=== PATIENT | male | born 1950 | race Caucasian/White ===

== ENCOUNTER 2019-05-04 05:40 | Day surgery (SDC) | payer OTHER ==
[2019-05-04] VITALS (7 sets, daily range): BP systolic 101–124; BP diastolic 66–84
[~2019-05-04] VITALS: Ht 177.8 cm; Wt 87.1 kg
[~2019-05-04 05:40] MED LIST: AMLO5TAB9 PO; ASPI-555 PO; CARV6.25 PO; CHOL50004 PO; ESOM40CA54 PO; FINA5TAB41 PO; INSLAN SQ; IRBE1TAB43 PO; IRON PO; MONT10TA24 PO; OMEG100014 PO; PHEN100C9 PO; PREG75 PO; RANI150C4 PO; ROSU40TA20 PO; SODIUM CHLORIDE 0.9% 1000ML 1,000 ML IV ONE; SYMBICORT; TAMS-1 PO
[2019-05-04] MEDS ORDERED: PROPOFOL 1000 MG/100 ML 100 ML IV ONE (07:22)
[2019-05-04] MEDS ORDERED: EPHEDRINE SULFATE 50 MG/ML AMPULE ONE (07:34)
[2019-05-04] MEDS ORDERED: SODIUM CHLORIDE 0.9% 10 ML VIAL ONE (07:49)
[2019-05-04] MEDS ORDERED: PHENYLEPHRINE HCL 10 MG/ML 1ML VIAL IV ONE (07:49)
== END 2019-05-04 08:25 | disposition home or self-care (01) ==
LOC: DAH 05:40 → ENDO 05:40
PROVIDERS: ATTEND Internal Medicine Gastroenterology
DX: D12.3 Benign neoplasm of transverse colon (principal); D12.4 Benign neoplasm of descending colon; K29.50 Unspecified chronic gastritis without bleeding; K63.5 Polyp of colon; Z86.010 Personal history of colon polyps; I10 Essential (primary) hypertension; J45.909 Unspecified asthma, uncomplicated; E11.9 Type 2 diabetes mellitus without complications; I21.3 ST elevation (STEMI) myocardial infarction of unspecified site; G40.909 Epilepsy, unspecified, not intractable, without status epilepticus; Z98.49 Cataract extraction status, unspecified eye; Z98.890 Other specified postprocedural states; Z79.899 Other long term (current) drug therapy; Z79.4 Long term (current) use of insulin; Z79.84 Long term (current) use of oral hypoglycemic drugs; E78.2 Mixed hyperlipidemia; I25.10 Atherosclerotic heart disease of native coronary artery without angina pectoris
CPT/HCPCS: 43239; 45380; 45385; 82948 ×2; 88305; 93005; A4606; J2370; J2704; J3490; J7030

== ENCOUNTER 2019-06-30 12:12 | Emergency (ER) | payer OTHER ==
[~2019-06-30 12:12] MED LIST changes: -ROSU40TA20 PO; +ROSU40TA21 PO; -SODIUM CHLORIDE 0.9% 1000ML 1,000 ML IV ONE
[2019-06-30] MEDS ORDERED: METHYLPREDNISOLONE SOD SUCC 125MG/2ML VIAL ONE (12:44)
[2019-06-30] MEDS ORDERED: IPRATROPIUM/ALBUTEROL SULFATE 3 ML SOLUTION IH ONE ×2 (12:56→14:29)
[2019-06-30 13:18] LABS: BASOPHILS % (AUTO) 0.8 % (0.0-5.0); HEMATOCRIT 39.8 % (42-54); LYMPHOCYTES % (AUTO) 20.1 % (21.0-51.0); MEAN CORPUSCULAR HEMOGLOBIN 31.7 pg (27.0-33.0); MEAN CORPUSCULAR HGB CONC 34.6 g/dL (32.0-36.0); MEAN CORPUSCULAR VOLUME 91.6 fL (79-99); MONOCYTES % (AUTO) 7.5 % (3.0-13.0); NEUTROPHILS % (AUTO) 69.6 % (40.0-77.0); PLATELET COUNT (AUTO) 173 K/uL (130-400); RED BLOOD CELL COUNT(AUTO) 4.35 MIL/uL (4.50-6.20); RED CELL DISTRIBUTION WIDTH 13.6 % (11.0-15.5); WHITE BLOOD COUNT (AUTO) 5.9 K/uL (4.8-10.8)
[2019-06-30 13:28] LABS: ALBUMIN 3.5 g/dL (3.5-5.0); BILIRUBIN,TOTAL 0.3 mg/dL (0.2-1.0); POTASSIUM 4.1 mmol/L (3.5-5.1); TOTAL PROTEIN, SERUM 7.1 g/dL (6.0-8.3)
[2019-06-30 13:42] LABS: B-TYPE NATRIURETIC PEPTIDE 20 pg/mL (0-100)
[2019-06-30] MEDS ORDERED: INSULIN HUMULIN R 100 UNIT/ML 3ML ONE (14:08)
[2019-06-30] MEDS ORDERED: SODIUM CHLORIDE 0.9% 1000ML 1,000 ML IV ONE (14:09)
[2019-06-30] MEDS ORDERED: CEFTRIAXONE SODIUM 1 GM ONE (14:28)
[2019-06-30] MEDS ORDERED: DOXYCYCLINE HYCLATE 100 MG TABLET PO ONE (14:29)
== END 2019-06-30 16:15 | disposition home or self-care (01) ==
LOC: EDH 12:12
DX: J44.1 Chronic obstructive pulmonary disease with (acute) exacerbation (principal); E11.65 Type 2 diabetes mellitus with hyperglycemia; J20.9 Acute bronchitis, unspecified; I10 Essential (primary) hypertension; J45.909 Unspecified asthma, uncomplicated; I25.2 Old myocardial infarction; Z98.890 Other specified postprocedural states
CPT/HCPCS: 36415; 71045; 80053; 82948; 83880; 84484; 85025; 93005; 94640 ×2; 96361; 96374; 96375; 99284; J0696; J1815; J2930; J7030

== ENCOUNTER 2019-08-08 22:57 | Observation (INO) | payer OTHER ==
[~2019-08-08] VITALS: Ht 180.3 cm; Wt 92.4 kg
[2019-08-08 23:29] LABS: APPEARANCE,URINE Clear (CLEAR); BILIRUBIN,URINE Negative (NEGATIVE); COLOR,URINE Yellow (YELLOW); GLUCOSE, URINE (UA) Negative (NEGATIVE); KETONES,URINE Negative (NEGATIVE); LEUKOCYTE ESTERASE ,URINE Negative (NEGATIVE); NITRATE,URINE Negative (NEGATIVE); OCCULT BLOOD,URINE Negative (NEGATIVE); PROTEIN,URINE Negative (NEGATIVE); UROBILINOGEN,URINE 0.2 mg/dL (0.2-1.0)
[2019-08-08 23:32] LABS: BASOPHILS % (AUTO) 0.6 % (0.0-5.0); EOSINOPHILS % (AUTO) 1.5 % (0.0-8.0); HEMATOCRIT 35.2 % (42-54); LYMPHOCYTES % (AUTO) 20.4 % (21.0-51.0); MEAN CORPUSCULAR HGB CONC 35.6 g/dL (32.0-36.0); MEAN CORPUSCULAR VOLUME 89.9 fL (79-99); MONOCYTES % (AUTO) 10.9 % (3.0-13.0); NEUTROPHILS % (AUTO) 66.6 % (40.0-77.0); PLATELET COUNT (AUTO) 177 K/uL (130-400); RED BLOOD CELL COUNT(AUTO) 3.92 MIL/uL (4.50-6.20); RED CELL DISTRIBUTION WIDTH 13.8 % (11.0-15.5); WHITE BLOOD COUNT (AUTO) 6.8 K/uL (4.8-10.8)
[2019-08-08 23:42] LABS: CREATININE 0.9 mg/dL (0.5-1.5); POTASSIUM 3.7 mmol/L (3.5-5.1)
[2019-08-08 23:44] LABS: INR 0.96 (0.85-1.15); PARTIAL THROMBOPLASTIN TIME 25.6 SEC (26.3-35.5); PROTHROMBIN TIME 10.1 SEC (9.6-11.6)
[2019-08-08 23:47] LABS: ALBUMIN 3.4 g/dL (3.5-5.0); BILIRUBIN,TOTAL 0.2 mg/dL (0.2-1.0); TOTAL PROTEIN, SERUM 6.9 g/dL (6.0-8.3)
[2019-08-09] MEDS ORDERED: METRONIDAZOLE 500MG/100ML BAG 100 ML ONE (01:01)
[2019-08-09] MEDS ORDERED: KETOROLAC TROMETHAMINE 15MG/ML ONE (01:01)
[2019-08-09] MEDS ORDERED: LEVETIRACETAM 500 MG/5 ML SD VIAL IV ONE (01:01)
[2019-08-09] MEDS ORDERED: LEVOFLOXACIN 500 MG/D5W 100 ML 100 ML ONE (01:23)
[2019-08-09] MEDS ORDERED: ONDANSETRON HCL 4 MG/2 ML VIAL ONE (01:49)
[2019-08-09] MEDS ORDERED: MORPHINE SULFATE 4 MG/1ML SYG ONE ×2 (01:50→06:06)
[2019-08-09] MEDS ORDERED: ACETAMINOPHEN 325 MG TAB PO PRN ×3 (02:00→09:45)
[2019-08-09] MEDS ORDERED: MORPHINE SULFATE 4 MG/1ML SYG IVP PRN ×2 (02:00→10:00)
[2019-08-09] MEDS ORDERED: ONDANSETRON HCL 4 MG/2 ML VIAL IVP PRN ×2 (02:00→09:45)
[2019-08-09 08:00] VITALS: BP_SYST 123; BP_SYST 153; BP_DIAS 72; BP_DIAS 75
--- NOTE | 2019-08-09 08:55 | NUR ---
PT WANTS TO KNOW HOW TO PREVENT DIVERTICULITIS Addendum: 08/09/19 at 2040 by CLAIR MANZANARES RN RN [facility] CONSULT ENTERED FOR PREVENTIONS OF DIVERTICULITIS.
[2019-08-09] MEDS ORDERED: PANTOPRAZOLE SODIUM 40 MG TABLET.DR PO SCH (09:00)
[2019-08-09] MEDS: METRONIDAZOLE 500MG/100ML BAG 100 ML IVPB SCH ×2 (09:31→18:57)
[2019-08-09] MEDS: SODIUM CHLORIDE 0.9% 1000ML 1,000 ML IV SCH ×3 (09:33→22:00)
[2019-08-09] MEDS ORDERED: SODIUM CHLORIDE 0.9% 1000ML 1,000 ML IV SCH (09:45)
[2019-08-09] MEDS ORDERED: METRONIDAZOLE 500MG/100ML BAG 100 ML IVPB SCH (10:00)
[2019-08-09 11:00] VITALS: BP 145/77
[2019-08-09] MEDS ORDERED: PNEUMOCOCCAL VACCINE POLYVALENT 0.5 ML/VIAL [PPV] IM SCH (12:15)
[2019-08-09 16:00] VITALS: BP 143/75
--- NOTE | 2019-08-09 16:10 | NUR ---
DIET EDUCATION ROBERT provided Diverticulitis Diet Education to Pt. RD reviewed reference materials and handouts with Pt. Pt reports recurrent episodes of diverticulitis, however this current has been the most severe. ROBERT discusses stress levels with Pt related to providing care for . Pt also desires to speak to a [employer] for assistance with care for who is also currently admitted to [facility]. RD answered Pt questions related to diet education provided. Pt verbalized understanding. ROBERT encouraged Pt to notify as nutrition questions or concerns arise. Addendum: 08/09/19 at [address] RD Amended: Links added.
[2019-08-09] MEDS ORDERED: PREGABALIN 75 MG CAPSULE PO PRN (17:15)
[2019-08-09] MEDS ORDERED: DEXTROSE 50%-WATER 50 ML DISP.SYRIN IV PRN (17:45)
[2019-08-09] MEDS ORDERED: GLUCAGON 1MG KIT 1 MG ML IM PRN (17:45)
[2019-08-09] MEDS: PANTOPRAZOLE SODIUM 40 MG TABLET.DR PO SCH (18:56)
[2019-08-09 20:00] VITALS: BP 164/84
[2019-08-09] MEDS ORDERED: PNEUMOCOCCAL VACCINE POLYVALENT 0.5 ML/VIAL [PPV] IM ONE (21:00)
[2019-08-09] MEDS: INSULIN HUMULIN R 100 UNIT/ML 3ML SQ SCH (21:00)
[2019-08-09] MEDS ORDERED: NON-FORMULARY MEDICATION 1 EACH (Esomeprazole Magnesium 40 MG) PO SCH (21:00)
[2019-08-09] MEDS ORDERED: FAMOTIDINE 20MG TAB 20 MG TAB PO SCH (21:00)
[2019-08-09] MEDS: FISH OIL 1000 MG/CAP PO SCH (21:52)
[2019-08-09] MEDS: CARVEDILOL 6.25 MG TABLET PO SCH (21:53)
[2019-08-10] VITALS: BP 160/77
[2019-08-10] MEDS ORDERED: TRAM50TA4 PO (01:25)
[2019-08-10] MEDS ORDERED: METF-446 PO (01:27)
[2019-08-10] MEDS ORDERED: FENO48TA4 PO (01:31)
[2019-08-10] MEDS ORDERED: EMPA25TA PO (01:38)
[2019-08-10] MEDS ORDERED: OZEMPIC SQ (01:46)
[2019-08-10] MEDS: METRONIDAZOLE 500MG/100ML BAG 100 ML IVPB SCH ×3 (02:34→17:00)
[2019-08-10 04:00] VITALS: BP 155/77
[2019-08-10] MEDS: SODIUM CHLORIDE 0.9% 1000ML 1,000 ML IV SCH ×2 (05:59→18:00)
[2019-08-10] MEDS: PANTOPRAZOLE SODIUM 40 MG TABLET.DR PO SCH (06:00)
[2019-08-10] MEDS: INSULIN HUMULIN R 100 UNIT/ML 3ML SQ SCH ×3 (06:04→16:30)
[2019-08-10 08:00] VITALS: BP 181/83
[2019-08-10 08:13] LABS: BASOPHILS % (AUTO) 0.8 % (0.0-5.0); EOSINOPHILS % (AUTO) 1.6 % (0.0-8.0); HEMATOCRIT 35.8 % (42-54); LYMPHOCYTES % (AUTO) 19.4 % (21.0-51.0); MEAN CORPUSCULAR HEMOGLOBIN 31.1 pg (27.0-33.0); MEAN CORPUSCULAR HGB CONC 34.4 g/dL (32.0-36.0); MEAN CORPUSCULAR VOLUME 90.5 fL (79-99); MONOCYTES % (AUTO) 9.1 % (3.0-13.0); NEUTROPHILS % (AUTO) 69.1 % (40.0-77.0); PLATELET COUNT (AUTO) 188 K/uL (130-400); RED BLOOD CELL COUNT(AUTO) 3.95 MIL/uL (4.50-6.20); RED CELL DISTRIBUTION WIDTH 13.6 % (11.0-15.5); WHITE BLOOD COUNT (AUTO) 4.8 K/uL (4.8-10.8)
[2019-08-10 08:38] LABS: CREATININE 0.8 mg/dL (0.5-1.5)
[2019-08-10 08:42] LABS: MAGNESIUM 1.4 mg/dL (1.80-2.40); PHOSPHORUS 2.7 mg/dL (2.5-4.9)
[2019-08-10] MEDS ORDERED: Rosuvastatin Calcium 40 MG PO SCH (09:00)
[2019-08-10] MEDS ORDERED: PHENYTOIN SODIUM 100 MG ERCAP PO SCH (09:00)
[2019-08-10] MEDS ORDERED: MONTELUKAST SODIUM 10 MG TAB PO SCH (09:00)
[2019-08-10] MEDS ORDERED: FINASTERIDE 5 MG TABLET PO SCH (09:00)
[2019-08-10] MEDS ORDERED: TAMSULOSIN HCL 0.4 MG CAP.ER.24H PO SCH (09:00)
[2019-08-10] MEDS ORDERED: Cholecalciferol (Vitamin D3) 5,000 UNIT PO SCH (09:00)
[2019-08-10] MEDS ORDERED: AMLODIPINE BESYLATE 5 MG TAB PO SCH (09:00)
[2019-08-10] MEDS ORDERED: ASPIRIN 81 MG EC TAB PO SCH (09:00)
[2019-08-10] MEDS ORDERED: MAGNESIUM 2GM PREMIX 50ML 50 ML IV SCH (09:45)
[2019-08-10] MEDS ORDERED: PNEUMOCOCCAL VACCINE POLYVALENT 0.5 ML/VIAL [PPV] IM SCH (09:45)
[2019-08-10] MEDS: FISH OIL 1000 MG/CAP PO SCH (10:02)
[2019-08-10] MEDS: CARVEDILOL 6.25 MG TABLET PO SCH (10:03)
[2019-08-10 11:00] VITALS: BP 148/79
--- NOTE | 2019-08-10 11:30 | NUR ---
MET [place] [facility] FOR INITIAL ASESSMENT- INDP, AAOX3, DRIVES, NO DME, LIVES WITH SPOUSE WHO WILL PROVIDE TRANSPORT HOME , NO DC [facility] Addendum: 08/10/19 at 1713 by VIOLETA RAMÍREZ RN CM Amended: Links added.
[2019-08-10] MEDS ORDERED: INSULIN GLARGINE 100 UNITS/ML 10 ML VIAL SQ SCH (17:00)
== END 2019-08-10 17:00 | disposition home or self-care (01) ==
LOC: EDH 22:57 → EDHIP 08-09 01:21 → 4CH 08-09 08:00
PROVIDERS: ADMIT Internal Medicine Critical Care Medicine; ATTEND Internal Medicine Critical Care Medicine
DX: K57.92 Diverticulitis of intestine, part unspecified, without perforation or abscess without bleeding (principal); I10 Essential (primary) hypertension; E11.9 Type 2 diabetes mellitus without complications; E78.5 Hyperlipidemia, unspecified; I25.2 Old myocardial infarction; G40.909 Epilepsy, unspecified, not intractable, without status epilepticus; N40.0 Benign prostatic hyperplasia without lower urinary tract symptoms; J45.909 Unspecified asthma, uncomplicated; Z79.4 Long term (current) use of insulin; Z79.82 Long term (current) use of aspirin; Z95.5 Presence of coronary angioplasty implant and graft; Z79.01 Long term (current) use of anticoagulants; Z23 Encounter for immunization
CPT/HCPCS: 36415 ×2; 71045; 74176; 80048; 80053; 81003; 82150; 82550; 82948 ×3; 83690; 83735; 84100; 84484; 85025 ×2; 85610; 85730; 90732; 93005; 96365; 96366 ×3; 96368; 96372; 99284; G0009; G0378 ×38; J1815; J1885; J1956; J2270 ×2; J2405; J3475; J3490 ×5; J7030; J1953; Q2035

== ENCOUNTER 2019-12-03 10:43 | Emergency (ER) | payer OTHER ==
[~2019-12-03 10:43] MED LIST changes: +EMPA25TA PO; +FENO48TA9 PO; +METF-446 PO; +OZEMPIC SQ; +TRAM50TA4 PO
[2019-12-03 11:35] LABS: APPEARANCE,URINE CLEAR (CLEAR); BILIRUBIN,URINE NEGATIVE (NEGATIVE); COLOR,URINE ORANGE (YELLOW); GLUCOSE, URINE (UA) 250 mg/dL (NEGATIVE); KETONES,URINE 5 mg/dL (NEGATIVE); LEUKOCYTE ESTERASE ,URINE TRACE (NEGATIVE); NITRATE,URINE POSITIVE (NEGATIVE); OCCULT BLOOD,URINE NEGATIVE (NEGATIVE); PROTEIN,URINE 100 mg/dL (NEGATIVE); UROBILINOGEN,URINE >=8.0 mg/dL (0.2-1.0)
[2019-12-03 11:48] LABS: BACTERIA,URINE None Seen /HPF (None Seen); MUCUS,URINE Moderate LPF (None Seen); RBC,URINE 0-1 /HPF (0-1); SQUAMOUS EPITHELIAL CELL,UR 0-2 /HPF (0-2); WBC,URINE 0-1 /HPF (0-1)
== END 2019-12-03 12:12 | disposition home or self-care (01) ==
LOC: EDH 10:43
DX: R30.0 Dysuria (principal); N40.0 Benign prostatic hyperplasia without lower urinary tract symptoms; J45.909 Unspecified asthma, uncomplicated; E11.9 Type 2 diabetes mellitus without complications; E78.5 Hyperlipidemia, unspecified; I10 Essential (primary) hypertension; I25.2 Old myocardial infarction; Z87.891 Personal history of nicotine dependence
CPT/HCPCS: 81001

== ENCOUNTER → 2020-08-17 | Outpatient (CLI) | payer OTHER ==
[~2020-08-17] MED LIST changes: -ASPI-555 PO; +ASPI-556 PO; -MONT10TA24 PO; +MONT10TA26 PO
== END | disposition home or self-care (01) ==
LOC: RAH 11:05
PROVIDERS: ATTEND Family Medicine
DX: N28.1 Cyst of kidney, acquired (principal); R31.9 Hematuria, unspecified
CPT/HCPCS: 76770